=== PATIENT | female | born 1985 | race Caucasian/White ===

== ENCOUNTER 2017-08-03 08:25 | Emergency (ER) | payer OTHER ==
[2017-08-03 08:31] VITALS: BP 122/89
== END 2017-08-03 09:43 | disposition home or self-care (01) ==
LOC: ED 08:25
DX: M54.5 Low back pain (principal); S66.911A Strain of unspecified muscle, fascia and tendon at wrist and hand level, right hand, initial encounter; X58.XXXA Exposure to other specified factors, initial encounter; Y93.89 Activity, other specified; Y92.89 Other specified places as the place of occurrence of the external cause; Y99.8 Other external cause status

== ENCOUNTER 2019-11-19 08:08 | Emergency (ER) | payer OTHER ==
[~2019-11-19] VITALS: Ht 157.5 cm; Wt 127.9 kg
[2019-11-19 08:37] VITALS: Ht 157.5 cm; Wt 127.9 kg
[2019-11-19 09:06] LABS: BASOPHIL % 1.3 % (0-2); PLATELET COUNT 278 x10^3mcL (130-400)
[2019-11-19 09:10] LABS: RED CELL DISTRIBUTION WIDTH 15.8 % (11.5-14.5)
[2019-11-19 09:17] LABS: CALCIUM 8.7 mg/dL (8.5-10.1); CARBON DIOXIDE 28.1 mmol/L (21-32); CHLORIDE SERUM 99 mmol/L (98-107); CREATININE SERUM 0.8 mg/dL (0.6-1.0); GFR1 > 60 mL/min; GLUCOSE SERUM 115 mg/dL (74-106); POTASSIUM SERUM 3.9 mmol/L (3.5-5.1); SODIUM SERUM 132 mmol/L (136-145)
[2019-11-19 09:22] LABS: ALBUMIN 3.5 g/dL (3.4-5.0); ALKALINE PHOSPHATASE 72 U/L (46-116); ALT/SGPT 53 U/L (14-59); AST/SGOT 31 U/L (15-37); BILIRUBIN TOTAL 0.4 mg/dL (0.20-1.00); LIPASE 84 IU/L (73-393)
[2019-11-19 09:24] LABS: TOTAL PROTEIN, SERUM 8.3 g/dL (6.4-8.2)
[2019-11-19 10:16] LABS: UA SPECIFIC GRAVITY >=1.030 (1.005-1.035); microscopic required? YES; urine erythrocyte NEGATIVE (NEGATIVE)
[2019-11-19 12:20] VITALS: BP 130/71
== END 2019-11-19 12:20 | disposition home or self-care (01) ==
LOC: ED 08:08
PROVIDERS: Emergency Medicine
DX: N39.0 Urinary tract infection, site not specified (principal)
CPT/HCPCS: 36415; J0696

== ENCOUNTER 2020-07-05 20:07 | Emergency (ER) | payer OTHER, SELFPAY ==
[~2020-07-05] VITALS: Ht 157.5 cm; Wt 129.7 kg
[2020-07-05 20:09] VITALS: Ht 157.5 cm; Wt 129.7 kg
[2020-07-05 20:54] VITALS: BP 124/80
== END 2020-07-05 20:54 | disposition home or self-care (01) ==
LOC: ED 20:07
DX: U07.1 COVID-19 (principal)